=== PATIENT | female | born 1990 | race Caucasian/White ===

== ENCOUNTER → 2025-03-19 | Outpatient (CLI) | payer OTHER | LOC: M PLAIMG 14:29 | PROVIDERS: ATTEND Physician Assistant Surgical | DX: M24.851 Other specific joint derangements of right hip, not elsewhere classified (principal); M70.61 Trochanteric bursitis, right hip ==

== ENCOUNTER 2025-04-08 09:04 | Emergency (ER) | payer OTHER ==
[~2025-04-08] VITALS: Ht 170.2 cm; Wt 75.1 kg
[2025-04-08] MEDS ORDERED: CYCL5TAB4 (10:41)
[2025-04-08] MEDS ORDERED: IBUP200T46 PO (10:41)
[2025-04-08] MEDS ORDERED: LEXA1TAB (10:41)
[2025-04-08] MEDS: KETOROLAC 30 MG/ML 1 ML VIAL IV ONE (12:08)
[2025-04-08 12:10] LABS: BASO # 0.1 10^3/uL (0.0-0.2); BASO % 0.8 % (0.0-1.0); EOS # 0.2 10^3/uL (0.0-0.5); EOS % 2.8 % (0.0-3.0); LYMPH # 2.5 10^3/uL (1.5-5.0); LYMPH % 29.8 % (24.0-44.0); MONO # 0.5 10^3/uL (0.0-0.8); MONO % 5.4 % (2.0-8.0); NEUTROPHILS # 5.2 10^3/uL (1.5-8.5); NEUTROPHILS % 60.8 % (36.0-66.0); PLATELET COUNT, AUTOMATED 329 10^3/uL (150-450)
[2025-04-08 12:38] LABS: FREE T4 0.98 NG/DL (0.89-1.76)
[2025-04-08 12:42] LABS: CALCIUM LEVEL 9.1 MG/DL (8.5-10.1); CARBON DIOXIDE LEVEL 24 MMOL/L (20-31); CHLORIDE LEVEL 106 MMOL/L (98-107); CREATININE FOR GFR 0.71 MG/DL (0.55-1.30); GLOMERULAR FILTRATION RATE > 90.0 (>60); IRON (FE) 137 UG/DL (50-170); PERCENT SATURATION 45.8 % (13.2-45.0); POTASSIUM SERUM 4.5 MMOL/L (3.5-5.1); SODIUM LEVEL 139 MMOL/L (136-145)
[2025-04-08 14:23] VITALS: BP 110/58; TEMP 98.2; O2SAT 100
== END 2025-04-08 14:57 | disposition home or self-care (01) ==
LOC: M ED 09:04
DX: M54.2 Cervicalgia (principal); R51.9 Headache, unspecified; N80.9 Endometriosis, unspecified; F10.10 Alcohol abuse, uncomplicated; Z79.1 Long term (current) use of non-steroidal anti-inflammatories (NSAID); Z79.899 Other long term (current) drug therapy; Z90.89 Acquired absence of other organs
CPT/HCPCS: 72125; 80048; 82728; 83550; 84439; 84443; 85025; 96374; 99284; J1885